=== PATIENT | female | born 1980 | race Caucasian/White ===

== ENCOUNTER 2022-01-16 12:03 | Day surgery (SDC) | payer MEDICAID, SELFPAY ==
[2022-01-16 12:27] LABS: HCG Qualitative* Negative (Negative)
[2022-01-16 12:30] VITALS: BMI 26.5
[2022-01-16] MEDS: LACTATED RINGERS 1000 ML 1,000 ML 100 ML IV ×2 (12:30→13:35)
[2022-01-16] MEDS: SODIUM CHLORIDE 0.9 % (FLUSH) 10 ML SYRINGE IVF (12:30)
[2022-01-16 12:42] VITALS: BP 83/62; PULSE 71; RESP 16; TEMP 36.7; O2SAT 98
--- NOTE | 2022-01-16 12:47 | SUR.PREOP ---
VASOVAGAL EPISODE AFTER INSERTION ON IV. PATIENT STATES SHE FEELS BETTER.
[2022-01-16 13:45] VITALS: BP 102/68; PULSE 73; RESP 16; TEMP 36.4; O2SAT 95
--- NOTE | 2022-01-16 13:49 | W.ANESCHARGE ---
Anesthesia Charges Start Date/Time Anesthesia Start Date: 01/16/22 Anesthesia Start Time: 12:50 Stop Date/Time Anesthesia Stop Date: 01/16/22 Anesthesia Stop Time: 13:50 Summary Emergency: No
[2022-01-16 14:00] VITALS: BP 100/59; PULSE 72; RESP 16; TEMP 36.4; O2SAT 96
[2022-01-16 14:18] VITALS: BP 98/59; PULSE 80; RESP 16; TEMP 36.4; O2SAT 98
--- NOTE | 2022-01-16 14:18 | W.ANESCHARGE ---
Anesthesia Charges Start Date/Time Anesthesia Start Date: 01/16/22 Anesthesia Start Time: 12:50 Stop Date/Time Anesthesia Stop Date: 01/16/22 Anesthesia Stop Time: 13:50 Summary Emergency: No
--- NOTE | 2022-01-16 14:27 | W.PM.GYNPROC ---
Procedure Note Date Seen: 01/16/22 Procedure Details: PREOPERATIVE DIAGNOSIS: Menorrhagia, suspected endometrial polyp POSTOPERATIVE DIAGNOSIS: Menorrhagia, thickened endometrium with multiple suspected endometrial polyps PROCEDURE: Hysteroscopy, polypectomy, dilation and curettage, insertion of Mirena IUD SURGEON: Chanel Ludwig MD ANESTHESIA: Monitored anesthesia care, paracervical block IV FLUIDS: 1100 mL crystalloid URINE OUTPUT: Approximately 5 mL EBL: 5 mL SALINE DEFICIT: 275 mL FINDINGS: 1. Exam under anesthesia revealed a mobile, anteverted uterus without any palpable adnexal masses. 2. Upon hysteroscopy, survey of the endometrial cavity revealed diffusely thickened endometrium with multiple polypoid projections, suspicious for polyps. The endometrial cavity was of normal shape. Tubal ostia were normal in appearance. Uterus sounded to 9 cm. COMPLICATIONS: None PROCEDURE IN DETAIL: Patient was taken to the operating room with IV running. She was positioned in dorsal lithotomy position with her legs fully supported in Yellofin stirrups. Monitored anesthesia care was administered. She was prepped and draped in the usual sterile fashion. Exam under anesthesia was performed for the above-noted findings. Bladder was drained via straight catheterization. Speculum was inserted. Cervix visualized and grasped along the anterior lip with a single-tooth tenaculum. Paracervical block was performed. Cervix was serially dilated to accommodate the TRUCLEAR hysteroscope. This was assembled with saline inflow and outflow in place. The line was flushed of bubbles. The hysteroscope was advanced through the cervix into the endometrial cavity for the above noted findings. The tissue morcellator was then inserted through the operating channel. Window lock was performed. Under direct visualization, the endometrial cavity was circumferentially curetted with the tissue morcellator. The hysteroscope and morcellator were then removed from the uterus. Uterus sounds to 9 cm. The Mirena IUD is loaded into the insertion tube, inserted to the sounded depth, and the IUD is deployed. Insertion tube was removed. Strings are trimmed to 3 cm. Tenaculum was removed from the anterior lip of cervix. Hemostasis was achieved with silver nitrate. Speculum was removed. Patient tolerated procedure well. She was taken to recovery area in stable condition.
[2022-01-16 14:30] VITALS: BP 96/49; PULSE 80; RESP 16; TEMP 36.6; O2SAT 97
[2022-01-16 14:56] VITALS: BP 91/52; PULSE 78; RESP 16; TEMP 36.6; O2SAT 97
--- NOTE | 2022-01-16 14:58 | SUR.PHASEII ---
pt asymptomatic to low bp, no lightheadedness, dizziness
== END 2022-01-16 15:14 | disposition home or self-care (01) ==
PROVIDERS: Visit Provider Obstetrics & Gynecology
PROC: 0UDB8ZZ Extraction of Endometrium, Via Natural or Artificial Opening Endoscopic (ICD-10-PCS; CPT 58558; principal; 2022-01-16 13:50)
DX: N92.0 Excessive and frequent menstruation with regular cycle (principal); R93.89 Abnormal findings on diagnostic imaging of other specified body structures; N84.0 Polyp of corpus uteri; Z30.430 Encounter for insertion of intrauterine contraceptive device
CPT/HCPCS: 58558; 58300; 00952; 36415; 84703; 86850; 86900; 86901; 88305; J1100; J1885; J2250; J2405; J2704; J3010; J7120; J7298